=== PATIENT | female | born 1995 | race American Indian/Alaskan Native ===

== ENCOUNTER 2020-02-16 20:20 | Emergency (ER) | payer SELFPAY ==
[2020-02-16 21:14] VITALS: BP 154/96
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
--- NOTE | 2020-02-16 23:03 | XRay Report ---
RIGHT THUMB 3 VIEWS INDICATION / CLINICAL INFORMATION: thumb injury. COMPARISON: None available. FINDINGS: BONES/JOINT(S): There is a minimally displaced fracture of the ulnar aspect of the base of the thumb proximal phalanx (probable avulsion fracture at the insertion of the ulnar collateral ligament). No a dditional acute fracture. SOFT TISSUES: No significant abnormality. ADDITIONAL FINDINGS: None. Signer Name: Scott Carolina MD Signed: 02/16/2020 10:58 PM Workstation Name: [email or web address]
== END 2020-02-17 01:00 | disposition left against medical advice (07) ==
LOC: ED 20:20
DX: R04.0 Epistaxis (principal); Z53.21 Procedure and treatment not carried out due to patient leaving prior to being seen by health care provider